=== PATIENT | female | born 1965 | race African-American/Black ===

== ENCOUNTER 2020-09-03 15:22 | Outpatient (CLI) | payer OTHER, SELFPAY ==
--- NOTE | ~2020-09-03 | DEXA_ITS ---
Bone Density Report Name: Patty Moreno Age: 55 Sex: Female Ethnicity: Black Date of : 1965 Indication: postmenopausal; height loss; hysterectomy; Referring Provider: BETH LOBO Study: Bone densitometry was performed. Exam Date: September 03, 2020 Accession number: [id number] Bone Density: Region BMD T-score Z-score Classification AP Spine (L1, L3, L4) 1.149 0.9 1.1 Normal Femoral Neck (Left) 0.811 -0.3 -0.2 Normal Total Hip (Left) 1.017 0.6 0.5 Normal Total Hip Bilateral Avg 1.027 0.7 0.6 Normal Femoral Neck (Right) 0.850 0.0 0.1 Normal Total Hip (Right) 1.036 0.8 0.6 Normal World Health Organization criteria for BMD impression classify patients as: Normal (T-score at or above -1.0), Osteopenia (T-score between -1.0 and -2.5), or Osteoporosis (T-score at or below -2.5). 10-year Fracture Risk: FRAX not reported because: All T-scores for Spine Total, Hip Total, Femoral Neck at or above -1.0 Previous Exams: Region Exam Age BMD T-score BMD Change BMD Change Date g/cm2 vs Baseline vs Previous AP Spine(L1, L3, L4) 09/03/2020 55 1.149 0.9 -0.017(-1.5%)# 0.008(0.7%) 06/08/2013 48 1.141 0.8 -0.024(-2.1%)# -0.024(-2.1%)# 07/21/2008 43 1.166 1.0 Total Hip(Left) 09/03/2020 55 1.017 0.6 0.015(1.5%)# 0.010(1.0%) 06/08/2013 48 1.007 0.5 0.005(0.5%)# 0.005(0.5%)# 07/21/2008 43 1.002 0.5 Total Hip(Right) 09/03/2020 55 1.036 0.8 0.020(1.9%)# 0.025(2.4%) 06/08/2013 48 1.011 0.6 -0.005(-0.5%)# -0.005(-0.5%)# 07/21/2008 43 1.016 0.6 *Denotes significance at 95% confidence level, LSC for AP Spine = 0.022 g/cm2, LSC for Total Hip = 0.027 g/cm2 Clinical Information Provided by Patient: Has used the following medications: Vitamin D, Calcium Has the following medical conditions: Hysterectomy Patient maximum height was 68 No regular weight bearing exercise Onset of menses at age 13 Number of children 1 Impression: The patient has normal bone mass. No significant bone loss was observed. Discussion: BONE DENSITY IS ABOVE THE MINIMUM DESIRABLE LEVEL AT ALL SKELETAL SITES TESTED. This patient?s bone mineral density is above the minimum desirable level (T-score -1.0 or better) at all sites measured. The patient should follow a healthful lifestyle (good nutrition with adequate calcium and vitamin D, and appropriate weight-bearing exercise). Follow-Up: Consider repeating this study in 5 year
--- NOTE | ~2020-09-03 | MM_ITS ---
EXAMINATION: MM screening [facility] BI w samina HISTORY: Screening mammogram TECHNIQUE: Craniocaudal and mediolateral oblique 3-D tomosynthesis images were obtained and synthetic 2-D images were generated. CAD analysis was submitted and interpreted. COMPARISON: 06/26/2019, 07/03/2018, 04/2017 bilateral digital screening mammogram examinations BREAST PARENCHYMAL COMPOSITION: There are scattered areas of fibroglandular density. FINDINGS: There is no evidence of suspicious mass, calcification, or architectural distortion to sugg est malignancy in either breast. There has been no suspicious interval change. IMPRESSION: 1. No mammographic evidence of malignancy. 2. Recommend routine screening mammography in one year. BI-RADS Category 1: Negative Reviewed, dictated and finalized at location A.
== END 2020-09-03 15:23 | disposition home or self-care (01) ==
LOC: ANHIMG 15:25
PROVIDERS: Visit Provider Obstetrics & Gynecology
DX: Z12.31 Encounter for screening mammogram for malignant neoplasm of breast (principal); Z78.0 Asymptomatic menopausal state
CPT/HCPCS: 77063; 77067; 77080

== ENCOUNTER 2022-10-12 13:33 | Outpatient (CLI) | payer OTHER, SELFPAY ==
--- NOTE | ~2022-10-12 | DEXA_ITS ---
Bone Density Report Name: SOHEILA DOSS Age: 57 Sex: Female Ethnicity: Black Date of : 1965 Indication: postmenopausal; screening for osteoporosis; hysterectomy; Referring Provider: RAJENDRA, ISAK Quintanilla Study: Bone densitometry was performed. Exam Date: October 12, 2022 Accession number: [id number] Bone Density: Region BMD T-score Z-score Classification AP Spine(L1, L3, L4) 1.194 1.3 1.7 Normal Femoral Neck (Left) 0.807 -0.4 -0.1 Normal Total Hip (Left) 0.941 0.0 0.1 Normal Femoral Neck (Right) 0.856 0.1 0.2 Normal Total Hip (Right) 0.941 0.0 0.1 Normal Total Hip Mean 0.941 0.0 0.1 Normal World Health Organization criteria for BMD impression classify patients as: Normal (T-score at or above -1.0), Osteopenia (T-score between -1.0 and -2.5), or Osteoporosis (T-score at or below -2.5). 10-year Fracture Risk: FRAX not reported because: All T-scores for Spine Total, Hip Total, Femoral Neck at or above -1.0 Previous Exams: Region Exam Age BMD T-score BMD Change BMD Change Date g/cm2 vs Baseline vs Previous Total Hip(Left) 10/12/2022 57 0.941 0.0 -0.076 (-7.5%) -0.076 (-7.5%) 09/03/2020 55 1.017 0.6 Total Hip(Right) 10/12/2022 57 0.941 0.0 -0.094 (-9.1%) -0.094 (-9.1%) 09/03/2020 55 1.036 0.8 *Denotes significance at 95% confidence level, LSC for Total Hip = 0.027 g/cm2 # Denotes dissimilar scan types or analysis methods Clinical Information Provided by Patient: Has used the following medications: Vitamin D, Calcium Has the following medical conditions: Hysterectomy Patient maximum height was 67 Drinks caffeinated beverages Onset of menses at age 12 Number of children 1 Impression: The patient has normal bone mass. No significant bone loss was observed. Discussion: BONE DENSITY IS ABOVE THE MINIMUM DESIRABLE LEVEL AT ALL SKELETAL SITES TESTED. This patient?s bone mineral density is above the minimum desirable level (T-score -1.0 or better) at all sites measured. The patient should follow a healthful lifestyle (good nutrition with adequate calcium and vitamin D, and appropriate weight-bearing exercise). Follow-Up: Consider repeating this study in 5 years or sooner if there is some new clinical indication. Reported by: [facility] on 10/12/2022 2:02:00 PM. Reviewed, dictated and finalized at location ABishnu STEELE
--- NOTE | ~2022-10-12 | MM_ITS ---
EXAMINATION: MM screening [facility] BI w samina HISTORY: Screening mammogram TECHNIQUE: Craniocaudal and mediolateral oblique 3-D tomosynthesis images were obtained and synthetic 2-D images were generated. CAD analysis was submitted and interpreted. COMPARISON: 09/03/2020, 06/26/2019, 06/23/2018 BREAST PARENCHYMAL COMPOSITION: There are scattered areas of fibroglandular density. FINDINGS: No suspicious mass, calcification, or architectural distortion are identified in either brea ast to suggest malignancy. There has been no suspicious interval change. IMPRESSION: 1. No mammographic evidence of malignancy. 2. Recommend routine screening mammography in one year. BI-RADS Category 1: Negative Reviewed, dictated and finalized at location A. [employer]
== END 2022-10-12 13:34 | disposition home or self-care (01) ==
PROVIDERS: Visit Provider Internal Medicine
DX: Z12.31 Encounter for screening mammogram for malignant neoplasm of breast (principal); Z78.0 Asymptomatic menopausal state
CPT/HCPCS: 77063; 77067; 77080